=== PATIENT | male | born 2000 | race Caucasian/White ===

== ENCOUNTER 2021-01-18 18:42 | Emergency (ER) | payer OTHER | END 2021-01-18 20:22 | disposition home or self-care (01) | LOC: FER 18:42 | DX: T67.5XXA Heat exhaustion, unspecified, initial encounter (principal); Z88.8 Allergy status to other drugs, medicaments and biological substances; X30.XXXA Exposure to excessive natural heat, initial encounter; Y93.89 Activity, other specified; Y92.512 Supermarket, store or market as the place of occurrence of the external cause | CPT/HCPCS: 99284; J7030 ==